=== PATIENT | male | born 1945 | race Caucasian/White ===

== ENCOUNTER 2025-02-15 20:30 | Inpatient (IN) ==
[2025-02-15] MEDS: fentaNYL 100 MCG/2 ML VIAL IV ONE (23:08)
[2025-02-15] MEDS: KETOROLAC 15 MG/ML VIAL IV ONE (23:09)
[2025-02-15] MEDS: METHOCARBAMOL 1,000 MG/10 ML VIAL IV ONE (23:09)
[2025-02-16] MEDS: ACETAMINOPHEN 1,000 MG/100 ML BAG IV ONE (00:11)
[2025-02-16] MEDS: morphine 4 MG/ML VIAL IV ONE (00:12)
[2025-02-16] MEDS: ONDANSETRON 4 MG/2 ML VIAL IV ONE ×2 (00:12→08:05)
[2025-02-16] MEDS: HYDROmorphone 0.5 MG/0.5 ML SYRINGE IV ONE ×2 (01:26→07:42)
[2025-02-16] MEDS: METHOCARBAMOL 750 MG TABLET PO ONE (07:39)
[2025-02-16] MEDS: ONDANSETRON 4 MG/2 ML VIAL ONE (08:06)
[2025-02-16 08:54] LABS: Basophils # (Auto) 0.05 K/mcL (0.00-0.30); Basophils % (Auto) 0.5 % (0.0-2.0); Eosinophils # (Auto) 0.09 K/mcL (0.00-0.70); Eosinophils % (Auto) 0.8 % (0.0-7.0); Hematocrit 30.7 % (40.1-51.0); Hemoglobin 10.3 g/dL (13.7-17.5); Lymphocytes # (Auto) 1.52 K/mcL (1.50-4.80); Lymphocytes % (Auto) 14.2 % (15.5-49.0); Mean Cell Volume 94.5 fL (80.0-100.0); Mean Corpuscular HGB Conc 33.6 g/dL (31.0-36.0); Monocytes # (Auto) 0.97 K/mcL (0.10-0.90); Monocytes % (Auto) 9.1 % (1.0-12.0); Neutrophils % (Auto) 75.2 % (38.0-78.0); Platelet Count 228 K/mcL (140-440); RBC 3.25 M/mcL (4.63-6.08); Red Cell Distribution Width 13.5 % (11.5-14.5); WBC 10.7 K/mcL (4.5-11.0)
[2025-02-16] MEDS: DEXAMETHASONE 10 MG/ML VIAL IV ONE (08:54)
[2025-02-16] MEDS: DIAZEPAM 10 MG/2 ML SYRINGE IV ONE (08:55)
[2025-02-16 09:03] LABS: Blood Urea Nitrogen 14 mg/dL (8-23); Calcium 8.8 mg/dL (8.6-10.4); Carbon Dioxide 23 mmol/L (22-30); Chloride 97 mmol/L (96-108); Glomerular Filtration Rate 48; Glucose 150 mg/dL (70-105); Potassium 3.9 mmol/L (3.3-5.1); Sodium 132 mmol/L (133-145)
[2025-02-16] MEDS ORDERED: POTASSIUM CHLORIDE 20 MEQ TABLET PO PRN ×2 (10:38)
[2025-02-16] MEDS ORDERED: METOCLOPRAMIDE 10 MG/2 ML VIAL IV PRN (10:38)
[2025-02-16] MEDS ORDERED: METOPROLOL TARTRATE 5 MG/5 ML VIAL IV PRN (10:38)
[2025-02-16] MEDS ORDERED: SENNOSIDES 1 TABLET PO PRN (10:38)
[2025-02-16] MEDS ORDERED: MAGNESIUM SULFATE 2 GM/50 ML BAG IV PRN (10:38)
[2025-02-16] MEDS ORDERED: POTASSIUM CHLORIDE 40 MEQ in DEXTROSE 5% IN WATER 500 ML IV PRN (10:38)
[2025-02-16] MEDS ORDERED: IPRATROPIUM/ALBUTEROL 3 ML AMPUL.NEB NEB PRN (10:38)
[2025-02-16] MEDS: LIDOCAINE 4% TOP PATCH TOPICAL SCH (11:13)
[2025-02-16] MEDS: 0.9 % SODIUM CHLORIDE 1,000 ML IV ONE (11:13)
[2025-02-16] MEDS: KETOROLAC 15 MG/ML VIAL IV SCH (11:14)
[2025-02-16] MEDS: ACETAMINOPHEN 325 MG TABLET PO SCH (11:14)
[2025-02-16] MEDS: morphine 4 MG/ML VIAL IV PRN (12:33)
[2025-02-16] MEDS: 0.9 % SODIUM CHLORIDE 10 ML SYRINGE IV SCH (12:43)
[2025-02-16] MEDS: BENZONATATE 100 MG CAPSULE PO PRN (12:55)
[2025-02-16] MEDS: oxyCODONE/APAP 5/325MG TABLET PO PRN (16:01)
[2025-02-16] MEDS: DOCUSATE SODIUM 100 MG CAPSULE PO SCH (20:12)
[2025-02-16] MEDS: METHOCARBAMOL 1,000 MG/10 ML VIAL IV PRN (22:10)
[2025-02-17 06:34] LABS: ALT/SGPT 17 U/L (<40); AST/SGOT 19 U/L (<40); Albumin 3.8 gm/dL (3.2-5.2); Albumin/Globulin Ratio 2.1 (1.0-2.3); Alkaline Phosphatase 80 U/L (39-117); Bilirubin,Direct 0.3 mg/dL (<0.3); Bilirubin,Total 0.7 mg/dL (0.1-1.0); Blood Urea Nitrogen 19 mg/dL (8-23); Carbon Dioxide 19 mmol/L (22-30); Chloride 94 mmol/L (96-108); Globulin 1.8 gm/dL (2.2-3.7); Glomerular Filtration Rate 52; Glucose 182 mg/dL (70-105); Lactate Dehydrogenase 138 U/L (135-225); Phosphorous 3.9 mg/dL (2.5-4.5); Sodium 128 mmol/L (133-145); Triglycerides 145 mg/dL (<150); Uric Acid 7.3 mg/dL (2.5-8.0)
[2025-02-17] MEDS: PANTOPRAZOLE 40 MG TABLET PO SCH (08:18)
[2025-02-17] MEDS: 0.9 % SODIUM CHLORIDE 1,000 ML IV ONE (08:18)
[2025-02-17] MEDS: RIVAROXABAN 20 MG TABLET PO SCH (08:18)
[2025-02-17] MEDS: PARoxetine 20 MG TABLET PO SCH (08:18)
[2025-02-17 09:00] LABS: Thyroid Stimulating Hormone 1.52 uIU/mL (0.27-5.01)
[2025-02-17] MEDS ORDERED: ACETAMINOPHEN 325 MG TABLET PO PRN (09:00)
[2025-02-17] MEDS ORDERED: BUDESONIDE FORMOTEROL INH PRN (10:33)
[2025-02-17] MEDS: ONDANSETRON 4 MG/2 ML VIAL IV PRN (13:09)
[2025-02-17 14:21] LABS: Sodium, Urine Random < 20 mmol/L
[2025-02-17 15:38] LABS: Osmolality,Urine 230 mOSM/kg (80-1000)
[2025-02-17 15:46] LABS: Sodium 124 mmol/L (133-145)
[2025-02-17] MEDS: SODIUM CHLORIDE 1 GM TABLET PO SCH (16:36)
[2025-02-17 22:23] LABS: Hemoglobin 7.1 g/dL (13.7-17.5)
[2025-02-18] MEDS: COSYNTROPIN 0.25 MG VIAL IV SCH (05:56)
[2025-02-18 06:54] LABS: ALT/SGPT 17 U/L (<40); AST/SGOT 25 U/L (<40); Albumin 3.4 gm/dL (3.2-5.2); Albumin/Globulin Ratio 2.3 (1.0-2.3); Alkaline Phosphatase 60 U/L (39-117); Bilirubin,Direct 0.2 mg/dL (<0.3); Bilirubin,Total 0.5 mg/dL (0.1-1.0); Blood Urea Nitrogen 15 mg/dL (8-23); Calcium 8.5 mg/dL (8.6-10.4); Carbon Dioxide 21 mmol/L (22-30); Chloride 101 mmol/L (96-108); Globulin 1.5 gm/dL (2.2-3.7); Glomerular Filtration Rate 72; Glucose 154 mg/dL (70-105); Lactate Dehydrogenase 146 U/L (135-225); Phosphorous 2.4 mg/dL (2.5-4.5); Sodium 131 mmol/L (133-145); Triglycerides 155 mg/dL (<150); Uric Acid 6.8 mg/dL (2.5-8.0)
[2025-02-18 06:59] LABS: Basophils # (Auto) 0.01 K/mcL (0.00-0.30); Basophils % (Auto) 0.1 % (0.0-2.0); Eosinophils % (Auto) 1.3 % (0.0-7.0); Hematocrit 20.4 % (40.1-51.0); Hemoglobin 6.9 g/dL (13.7-17.5); Lymphocytes # (Auto) 0.98 K/mcL (1.50-4.80); Lymphocytes % (Auto) 12.6 % (15.5-49.0); Mean Cell Volume 94.4 fL (80.0-100.0); Mean Corpuscular HGB Conc 33.8 g/dL (31.0-36.0); Mean Platelet Volume 8.9 fL (8.8-12.5); Monocytes # (Auto) 0.75 K/mcL (0.10-0.90); Monocytes % (Auto) 9.7 % (1.0-12.0); Neutrophils % (Auto) 75.8 % (38.0-78.0); Platelet Count 158 K/mcL (140-440); RBC 2.16 M/mcL (4.63-6.08); Red Cell Distribution Width 13.9 % (11.5-14.5); WBC 7.8 K/mcL (4.5-11.0)
[2025-02-18 07:46] LABS: Hematocrit 21.3 % (40.1-51.0)
[2025-02-18] MEDS: LORazepam 1 MG TABLET PO SCH (09:53)
[2025-02-18] MEDS: NEUTRA PHOS 1 PACKET PO SCH (11:37)
[2025-02-18 13:48] LABS: Hematocrit 20.8 % (40.1-51.0); Hemoglobin 6.8 g/dL (13.7-17.5)
[2025-02-18] MEDS: 0.9 % SODIUM CHLORIDE 250 ML IV SCH (17:45)
[2025-02-18 18:20] LABS: Sodium 137 mmol/L (133-145)
[2025-02-18] MEDS: HYDROCORTISONE 10 MG TABLET PO SCH (20:50)
[2025-02-18 21:41] LABS: Hematocrit 23.5 % (40.1-51.0); Hemoglobin 7.7 g/dL (13.7-17.5)
[2025-02-19 06:39] LABS: Basophils # (Auto) 0.02 K/mcL (0.00-0.30); Basophils % (Auto) 0.3 % (0.0-2.0); Eosinophils # (Auto) 0.14 K/mcL (0.00-0.70); Eosinophils % (Auto) 2.4 % (0.0-7.0); Hematocrit 23.8 % (40.1-51.0); Hemoglobin 7.8 g/dL (13.7-17.5); Lymphocytes # (Auto) 0.96 K/mcL (1.50-4.80); Lymphocytes % (Auto) 16.3 % (15.5-49.0); Mean Cell Volume 93.7 fL (80.0-100.0); Mean Corpuscular HGB Conc 32.8 g/dL (31.0-36.0); Mean Platelet Volume 8.8 fL (8.8-12.5); Monocytes # (Auto) 0.74 K/mcL (0.10-0.90); Monocytes % (Auto) 12.6 % (1.0-12.0); Neutrophils % (Auto) 67.9 % (38.0-78.0); Platelet Count 163 K/mcL (140-440); RBC 2.54 M/mcL (4.63-6.08); Red Cell Distribution Width 16.8 % (11.5-14.5); WBC 5.9 K/mcL (4.5-11.0)
[2025-02-19 07:33] LABS: ALT/SGPT 18 U/L (<40); AST/SGOT 24 U/L (<40); Albumin 3.4 gm/dL (3.2-5.2); Alkaline Phosphatase 61 U/L (39-117); Bilirubin,Direct 0.5 mg/dL (<0.3); Bilirubin,Total 1.2 mg/dL (0.1-1.0); Blood Urea Nitrogen 11 mg/dL (8-23); Calcium 8.6 mg/dL (8.6-10.4); Carbon Dioxide 24 mmol/L (22-30); Chloride 106 mmol/L (96-108); Globulin 1.7 gm/dL (2.2-3.7); Glomerular Filtration Rate 82; Glucose 115 mg/dL (70-105); Lactate Dehydrogenase 183 U/L (135-225); Phosphorous 2.9 mg/dL (2.5-4.5); Potassium 4.1 mmol/L (3.3-5.1); Sodium 139 mmol/L (133-145); Triglycerides 138 mg/dL (<150); Uric Acid 6.5 mg/dL (2.5-8.0)
[2025-02-19] MEDS: SODIUM CHLORIDE 1 GM TABLET PO SCH (08:57)
[2025-02-19] MEDS: POLYETHYLENE GLYCOL 3350 17 GM PACKET PO PRN (08:58)
[2025-02-19] MEDS ORDERED: SODIUM CHLORIDE 1 GM TABLET PO SCH (09:00)
[2025-02-19] MEDS ORDERED: COLESTIPOLL 1 GM TABLET PO PRN (20:07)
[2025-02-20 07:20] LABS: Basophils # (Auto) 0.03 K/mcL (0.00-0.30); Basophils % (Auto) 0.5 % (0.0-2.0); Eosinophils # (Auto) 0.14 K/mcL (0.00-0.70); Eosinophils % (Auto) 2.3 % (0.0-7.0); Hematocrit 24.3 % (40.1-51.0); Hemoglobin 7.8 g/dL (13.7-17.5); Lymphocytes % (Auto) 17.7 % (15.5-49.0); Mean Cell Volume 95.3 fL (80.0-100.0); Mean Corpuscular HGB Conc 32.1 g/dL (31.0-36.0); Mean Platelet Volume 8.8 fL (8.8-12.5); Monocytes # (Auto) 0.79 K/mcL (0.10-0.90); Monocytes % (Auto) 12.7 % (1.0-12.0); Neutrophils % (Auto) 66.5 % (38.0-78.0); Platelet Count 183 K/mcL (140-440); RBC 2.55 M/mcL (4.63-6.08); Red Cell Distribution Width 16.5 % (11.5-14.5); WBC 6.2 K/mcL (4.5-11.0)
[2025-02-20 07:44] LABS: ALT/SGPT 22 U/L (<40); AST/SGOT 26 U/L (<40); Albumin 3.4 gm/dL (3.2-5.2); Albumin/Globulin Ratio 2.3 (1.0-2.3); Alkaline Phosphatase 65 U/L (39-117); Bilirubin,Direct 0.5 mg/dL (<0.3); Blood Urea Nitrogen 9 mg/dL (8-23); Calcium 8.6 mg/dL (8.6-10.4); Carbon Dioxide 25 mmol/L (22-30); Chloride 105 mmol/L (96-108); Globulin 1.5 gm/dL (2.2-3.7); Glomerular Filtration Rate 86; Glucose 105 mg/dL (70-105); Lactate Dehydrogenase 219 U/L (135-225); Phosphorous 3.7 mg/dL (2.5-4.5); Sodium 138 mmol/L (133-145); Triglycerides 122 mg/dL (<150); Uric Acid 6.2 mg/dL (2.5-8.0)
[2025-02-21 02:30] VITALS: O2SAT 99
[2025-02-21 06:54] LABS: Basophils # (Auto) 0.02 K/mcL (0.00-0.30); Basophils % (Auto) 0.4 % (0.0-2.0); Eosinophils # (Auto) 0.11 K/mcL (0.00-0.70); Eosinophils % (Auto) 2.2 % (0.0-7.0); Hematocrit 24.6 % (40.1-51.0); Lymphocytes # (Auto) 1.13 K/mcL (1.50-4.80); Lymphocytes % (Auto) 22.5 % (15.5-49.0); Mean Cell Volume 94.6 fL (80.0-100.0); Mean Corpuscular HGB Conc 32.5 g/dL (31.0-36.0); Mean Platelet Volume 8.7 fL (8.8-12.5); Monocytes # (Auto) 0.58 K/mcL (0.10-0.90); Monocytes % (Auto) 11.6 % (1.0-12.0); Neutrophils % (Auto) 62.7 % (38.0-78.0); Platelet Count 204 K/mcL (140-440); Red Cell Distribution Width 16.1 % (11.5-14.5)
[2025-02-21 07:20] LABS: ALT/SGPT 21 U/L (<40); AST/SGOT 24 U/L (<40); Albumin 3.3 gm/dL (3.2-5.2); Albumin/Globulin Ratio 2.1 (1.0-2.3); Alkaline Phosphatase 68 U/L (39-117); Bilirubin,Direct 0.7 mg/dL (<0.3); Bilirubin,Total 1.5 mg/dL (0.1-1.0); Blood Urea Nitrogen 8 mg/dL (8-23); Calcium 8.8 mg/dL (8.6-10.4); Carbon Dioxide 25 mmol/L (22-30); Chloride 104 mmol/L (96-108); Globulin 1.6 gm/dL (2.2-3.7); Glomerular Filtration Rate 82; Glucose 111 mg/dL (70-105); Lactate Dehydrogenase 234 U/L (135-225); Phosphorous 3.7 mg/dL (2.5-4.5); Potassium 3.8 mmol/L (3.3-5.1); Sodium 138 mmol/L (133-145); Triglycerides 126 mg/dL (<150)
[2025-02-21 08:00] VITALS: TEMP 97.5
[2025-02-22 08:20] LABS: Renin Activity,Plasma-SO 1.43 ng/mL/h (0.25-5.82)
[2025-02-23 02:09] LABS: Aldosterone Serum 1.9 ng/dL
== END 2025-02-21 11:35 | DRG 605 ==
LOC: MEDSUR 20:30 → ED 20:30 → MEDSUR 02-16 10:30
PROVIDERS: ADMIT Internal Medicine; ATTEND Student in an Organized Health Care Education/Training Program